=== PATIENT | male | born 1985 | race Caucasian/White ===

== ENCOUNTER 2022-11-17 07:19 | Day surgery (SDC) | payer OTHER ==
[~2022-11-17] VITALS: Ht 182.9 cm; Wt 80.1 kg
--- NOTE | 2022-11-17 08:38 | NUR ---
11/17/22 0838 Shantanu,Alis 0856 PT ARRIVED TO PACU ON 2L VIA NC, PT WAKES TO TACTILE STIMULI AND IS REORIENTED TO PACU. PT EASILY FALLS BACK TO SLEEP. RESP EVEN AND UNLABORED.
--- NOTE | 2022-11-17 10:09 | OR ---
[facility] [address], [place] [address] Signed DATE OF OPERATION: 11/17/2022 SURGEON: Shakeel Arrington MD PREOPERATIVE DIAGNOSIS: Reducible anal lump/mass. POSTOPERATIVE DIAGNOSIS: Minimal to moderate internal hemorrhoids. PROCEDURE: Colonoscopy without biopsy. ESTIMATED BLOOD LOSS: None. INDICATIONS: David is a 37-year-old gentleman, who works hanging [employer] since he was 17 years old. It is very heavy work. He noticed over the last three years, he has had a lump that seems to come out of the anus on one side. He said it is worse with bowel movements. He can gently push it back and side. He finally went to his primary care provider. He also exercises and lift weights to help stay in shape. He said around age 3, he did have an exploration of the abdomen for an undescended testicle. He said he is and has four children. He said he really has no pain with his bowel movements and does not seem to have any pain with the lump. He said there is no bleeding. He said he is very shy and want me to his primary care provider to examine his anal canal in the office. In the office, I gave Lele a brochure on colonoscopy. We had reviewed the nature of the test. There is risk including, but not limited to gas bloating, crampy abdominal pain, bleeding, perforation requiring surgery, and missed diagnosis. We also reviewed the need for IV conscious sedation. He had expressed understanding and wished to proceed. PROCEDURE NOTE: David was taken into our endoscopy suite and placed in the left lateral decubitus position. He was given 9 mg of Versed and 125 mcg of fentanyl to cover the case. A digital rectal exam was performed and he has very good sphincter tone as expected. He has excellent perianal hygiene. There were no external hemorrhoids. His prostate is starting to become indurated and enlarged. We felt no masses. The adult colonoscope had been introduced and advanced all around into the cecum under direct visualization of the camera without difficulty. His prep was quite excellent. The scope was then slowly Electronically Signed By: SHAKEEL ARRINGTON MD 11/17/22 1009 PATIENT NAME: DAVID DEL CID OPERATIVE REPORT DATE OF : 83 REPORT #: [id number] PHYSICIAN: SHAKEEL ARRINGTON MD PCP: [facility] REPORT IS CONFIDENTIAL AND NOT TO BE RELEASED WITHOUT AUTHORIZATION [facility] [address], [place] [address] Signed withdrawn. We took pictures throughout for photodocumentation. There were no polyps and there were no diverticula. Once in the rectum, the scope was retroflexed and he does have some prominent internal hemorrhoid columns on one side. The one column is a little irritated. I suspect this is the one that bothers him from time to time. After this, the gas was suctioned out and the colonoscope removed. David tolerated the procedure quite well. RECOMMENDATIONS: David is welcome to continue his conservative measures for the hemorrhoid. If he decides he wants to have surgery, he is welcome to call my office and return for followup evaluation. Otherwise, he can return at age 44 for repeat screening colonoscopy. Shakeel Arrington MD ALB/MODL /[id number] cc: Shakeel Arrington MD [facility] Copies: SHAKEEL ARRINGTON MD ~ Electronically Signed By: SHAKEEL ARRINGTON MD 11/17/22 1009 PATIENT NAME: DAVID DEL CID OPERATIVE REPORT DATE OF : 83 REPORT #: [id number] PHYSICIAN: SHAKEEL ARRINGTON MD PCP: [facility] REPORT IS CONFIDENTIAL AND NOT TO BE RELEASED WITHOUT AUTHORIZATION
== END 2022-11-17 09:16 | disposition home or self-care (01) ==
LOC: DS 07:19
PROVIDERS: ATTEND Colon & Rectal Surgery
PROC: 0DJD8ZZ Inspection of Lower Intestinal Tract, Via Natural or Artificial Opening Endoscopic (ICD-10-PCS; principal; 2022-11-17 08:15)
DX: K64.8 Other hemorrhoids (principal); F17.200 Nicotine dependence, unspecified, uncomplicated; F41.9 Anxiety disorder, unspecified
CPT/HCPCS: 99153; G0500; J2250; J3010; J7121